=== PATIENT | male | born 1990 | race Two or more races ===

== ENCOUNTER 2022-12-11 23:24 | Emergency (ER) | payer SELFPAY ==
--- NOTE | ~2022-12-11 | XR_ITS ---
EXAMINATION: XR chest 2V DATE: 12/12/2022 00:45 INDICATION: Chest pain TECHNIQUE: PA and lateral views of the chest are obtained. COMPARISON: None available FINDINGS: The lungs are free of acute opacities. No pleural effusion or pneumothorax. The cardiomedia stinal silhouette is normal. The visualized bones and soft tissues are unremarkable. IMPRESSION: 1. No acute cardiopulmonary abnormality. Reviewed, dictated and finalized at location A. KERING MACHINE OPERATOR
--- NOTE | 2022-12-11 23:25 | ECG_ITS ---
Measurements Intervals [place] Rate: 58 P: 58 NH: 144 QRS: 29 QRSD: 94 T: 35 QT: 352 QTc: 347 Interpretive Statements SINUS BRADYCARDIA OTHERWISE NORMAL ECG NO PREVIOUS ECG AVAILABLE FOR COMPARISON Electronically Signed On 12-12-2022 11:31:26 CHOCOLATE MAKER by Alex Snow M.D.
[2022-12-11 23:27] VITALS: BP 139/98; PULSE 64; RESP 18; TEMP 36.8; O2SAT 100
[2022-12-11] MEDS: ASPIRIN 81 MG CHEWABLE TABLET 324 MG PO (23:38)
[2022-12-11 23:50] LABS: Basophils Absolute Auto 0.1 K/mm3 (0.0-0.1); Basophils Percent Auto 0.5 % (0.2-1.2); Eosinophils Absolute Auto 0.4 K/mm3 (0-0.3); Eosinophils Percent Auto 2.7 % (0-4.4); Hematocrit 48.5 % (42.0-52.0); Hemoglobin 16.7 g/dL (14.0-18.0); Immature Granulocyte Absolute 0.04 K/mm3 (0.00-0.031); Immature Granulocyte Percent A 0.3 % (0-0.5); Lymphocytes Absolute Auto 6.57 K/mm3 (0.9-3.2); Mean Corpuscular HGB Conc 34.4 g/dl (32-36); Mean Corpuscular Hemoglobin 30.7 pg (26-34); Mean Corpuscular Volume 89.2 fl (80-100); Mean Platelet Volume 10.8 fl (7.4-10.4); Monocytes Absolute Auto 0.8 K/mm3 (0.1-0.6); Monocytes Percent Auto 5.6 % (2.6-8.5); Neutrophils Absolute Auto 6.1 K/mm3 (1.3-6.7); Neutrophils Percent Auto 43.9 % (45.5-73.1); Platelet Count Result 263 k/mm3 (150-375); Red Blood Count 5.44 M/mm3 (4.6-6.20); Red Cell Distribution Width 12.8 % (11.5-14.5)
[2022-12-11 23:55] LABS: Partial Thromboplastin Time 28.8 SECONDS (22.3-36.8)
[2022-12-11 23:59] LABS: Schistocytes None Seen (NORMAL)
[2022-12-12] LABS: Platelet Estimate Adequate (Adequate); Smudge Cells FEW
[2022-12-12 00:20] VITALS: BP 142/90; PULSE 76; RESP 18; O2SAT 98
[2022-12-12 00:20] LABS: Alanine Aminotransferase 46 U/L (6-50); Albumin Level 4.8 g/dL (3.5-5.1); Alkaline Phosphatase 76 U/L (38-126); Anion Gap 8 mmol/L (8-16); Aspartate Amino Transferase 41 U/L (17-59); Bilirubin,Total 0.5 mg/dL (0.2-1.3); Blood Urea Nitrogen 17 mg/dL (9-20); Calcium 9.3 mg/dL (8.4-10.2); Carbon Dioxide 26 mmol/L (22-30); Chloride 103 mmol/L (98-107); Estimated CRCL calculation 132 ml/min; Estimated Glomerular Filt Rate > 60; Glucose 85 mg/dL (65-110); Lipase 54 U/L (23-300); Potassium 3.8 mmol/L (3.4-5.0); Sodium 137 mmol/L (137-145)
[2022-12-12 00:27] LABS: Troponin I < 0.012 ng/mL (0.000-0.034)
--- NOTE | 2022-12-12 00:30 | ED.GENADULT ---
HPI - General Adult General Chief complaint: Chest Pain Stated complaint: Chest heaviness and cp Time Seen by Provider: 12/11/22 23:33 History of Present Illness HPI narrative: 31-year-old male who reports no significant past medical history presenting to the emergency department for evaluation of 2 days of left-sided chest pain. Patient is a smoker and does have a frequent cough. Patient denies any recent fevers. Patient denies any cardiac history. Patient states the pain is worsened with movement and does report some exertional shortness of breath. Patient denies any recent medication changes. Patient denies any recent falls or injuries. Patient is [place] and is using a family member for medical record consultant. Translation computer was declined. Related Data Allergies Allergy/AdvReac Type Severity Reaction Status Date / Time No Known Allergies Allergy Verified 12/11/22 23:25 Review of Systems Review of Systems: CONSTITUTIONAL: Denies fever, chills, or sweats. EYES: Denies visual changes, redness, or discharge. ENT: Denies rhinorrhea, congestion, sore throat, or otalgia. CARDIOVASCULAR: See HPI. RESPIRATORY: Denies cough or dyspnea. GASTROINTESTINAL: Denies abdominal pain, nausea, vomiting, or diarrhea. GENITOURINARY: Denies dysuria or hematuria. SKIN: Denies rash or itching. MUSCULOSKELETAL: Denies back pain, joint pain, or myalgia. NEUROLOGIC: Denies headache, numbness, or weakness. Exam Narrative: APPEARANCE: Well appearing, no pain, no distress, well-nourished. HEAD: normocephalic, atraumatic. EYES: PERRLA/EOMI, conjunctivae clear. NOSE: Normal no drainage NECK: Supple. No adenopathy, no masses. RESPIRATORY: Airway patent, respirations nonlabored. Clear to auscultation bilaterally, no rales, rhonchi, wheezing. CARDIOVASCULAR: Regular rate and rhythm without murmurs rubs or gallops. ABDOMINAL: Soft, nontender, nondistended, normal bowel sounds MUSCULOSKELETAL: Moves all extremities. Strength/ROM intact, No edema, No calf tenderness. NEURO: Alert. Cranial nerves II through XII intact. Good gait. Good coordination SKIN: Warm, dry. Normal Color PSYCHIATRIC: Normal affect/mood. Course Course Emergency Course: Patient is afebrile but does have a leukocytosis of 14.0 patient had negative troponins. Patient's troponin was not elevated. Low concern for ACS and low concern for pulmonary embolism. Patient reports his pain was improved with Toradol. Patient chest x-ray showed no acute cardiopulmonary malady. No concern for pneumonia or pneumothorax. Patient was negative for influenza COVID and RSV. Patient and family were updated on the results of the work-up and suspected diagnosis of pleurisy. Patient was encouraged of close follow-up with a primary care physician. All questions and concerns were addressed and patient was well-appearing at time of discharge. Vital Signs Vital signs: Vital Signs Temperature 98.2 F 12/11/22 23:27 Pulse Rate 64 12/11/22 23:27 Respiratory Rate 18 12/11/22 23:27 Blood Pressure 139/98 H 12/11/22 23:27 Pulse Oximetry 100 12/11/22 23:27 Oxygen Delivery Room Air 12/11/22 23:27 Temperature 98.2 F 12/11/22 23:27 Pulse Rate 91 12/12/22 01:28 Respiratory Rate 16 12/12/22 01:28 Blood Pressure 121/94 H 12/12/22 01:28 Pulse Oximetry 100 12/12/22 01:28 Oxygen Delivery Room Air 12/11/22 23:27 Medical Decision Making Vital Signs Vital Signs: Vital Signs Temperature 98.2 F 12/11/22 23:27 Pulse Rate 64 12/11/22 23:27 Respiratory Rate 18 12/11/22 23:27 Blood Pressure 139/98 H 12/11/22 23:27 Pulse Oximetry 100 12/11/22 23:27 Oxygen Delivery Room Air 12/11/22 23:27 Temperature 98.2 F 12/11/22 23:27 Pulse Rate 91 12/12/22 01:28 Respiratory Rate 16 12/12/22 01:28 Blood Pressure 121/94 H 12/12/22 01:28 Pulse Oximetry 100 12/12/22 01:28 Oxygen Delivery Room Air 12/11/22 23:27 Lab Data Lab results reviewed: Yes I revi
[2022-12-12] MEDS: KETOROLAC 15 MG/ML VIAL (*BKC) IV PUSH (00:35)
[2022-12-12 00:55] LABS: D Dimer 0.41 ug/mL (<0.48)
[2022-12-12 01:28] VITALS: BP 121/94; PULSE 91; RESP 16; O2SAT 100
[2022-12-12 01:46] LABS: Influenza A QL RT-PCR Negative (Negative); Influenza B QL RT-PCR Negative (Negative); RSV RNA, RT-PCR Negative (Negative); SARS-CoV-2 RNA PCR Negative
[2022-12-12 02:56] LABS: Troponin I < 0.012 ng/mL (0.000-0.034)
[2022-12-12 03:10] VITALS: BP 128/84; PULSE 89; RESP 14; O2SAT 100
== END 2022-12-12 03:10 | disposition home or self-care (01) ==
PROVIDERS: Emergency Provider Emergency Medicine
DX: R09.1 Pleurisy (principal); R07.89 Other chest pain; Z20.822 Contact with and (suspected) exposure to COVID-19; F17.200 Nicotine dependence, unspecified, uncomplicated; R00.1 Bradycardia, unspecified
CPT/HCPCS: 36415; 71046; 80053; 83690; 84484; 85025; 85380; 85610; 85730; 87637; 93005; 96374; 99284; A9270; J1885

== ENCOUNTER 2023-02-22 18:02 | Emergency (ER) | payer SELFPAY ==
[2023-02-22 18:12] VITALS: BP 134/79; PULSE 89; RESP 16; TEMP 36.8
--- NOTE | 2023-02-22 20:10 | ED_ITS ---
HPI - General Adult General Chief complaint: Back Pain/Injury Stated complaint: back pain Time Seen by Provider: 02/22/23 20:00 History of Present Illness HPI narrative: 32-year-old male presents to our department again for right lower back pain with radiation down right leg. Onset was 4 days ago. No back pain red flags in history. Related Data Allergies Allergy/AdvReac Type Severity Reaction Status Date / Time No Known Allergies Allergy Verified 12/11/22 23:25 Review of Systems Review of Systems: 10 point review of systems is normal except as noted in HPI. Exam Narrative: GENERAL: Well-appearing, well-nourished, and in no acute distress. HEAD: Normocephalic, atraumatic. EYES: PERRLA and EOMI. ENT: Nares clear, no rhinorrhea or epistaxis. Mucous membranes moist. NECK: Supple. CHEST: Clear to auscultation. No respiratory distress. HEART: Regular rate and rhythm. No murmur heard. Normal peripheral pulses. ABDOMEN: Soft, nontender, nondistended, normal active bowel sounds. EXTREMITIES: Normal range of motion. No edema. SKIN: Warm, dry, no rash. NEURO: No focal deficits. Alert and oriented x3. Normal narrow-base gait PSYCH: Normal mood and affect. Course Vital Signs Vital signs: Vital Signs Temperature 98.2 F 02/22/23 18:12 Pulse Rate 89 02/22/23 18:12 Respiratory Rate 16 02/22/23 18:12 Blood Pressure 134/79 02/22/23 18:12 Temperature 98.2 F 02/22/23 18:12 Pulse Rate 89 02/22/23 18:12 Respiratory Rate 16 02/22/23 18:12 Blood Pressure 134/79 02/22/23 18:12 Medical Decision Making MDM Narrative Medical decision making narrative: Atraumatic right lower back pain x4 days. Patient was seen in our department after injury occurred and given [place], steroids, ibuprofen. His pain persist but his has inform me that he was unable to take them because the [place] made him vomit. No back pain red flags on history or physical exam. Vital Signs Vital Signs: Vital Signs Temperature 98.2 F 02/22/23 18:12 Pulse Rate 89 02/22/23 18:12 Respiratory Rate 16 02/22/23 18:12 Blood Pressure 134/79 02/22/23 18:12 Temperature 98.2 F 02/22/23 18:12 Pulse Rate 89 02/22/23 18:12 Respiratory Rate 16 02/22/23 18:12 Blood Pressure 134/79 02/22/23 18:12 Discharge Plan Discharge Clinical Impression: Strain of lumbar region, Sciatica Instructions: Acute Low Back Pain (ED) Additional Instructions: Please take all medications as directed. Follow-up with your PCP. Prescriptions: New methylprednisolone [Medrol (Chi)] 4 mg tablets,dose pack See Rx Instructions .ROUTE .COMPLEX Qty: 21 0RF Rx Instructions: orally per package directions ibuprofen 800 mg tablet 800 mg PO TID Qty: 20 0RF lidocaine [Lidoderm] 5 % adhesive patch,medicated 1 patch topical DAILY Qty: 15 0RF Rx Instructions: leave on most painful area for up to 12 hrs Follow-up/Referrals: PHYSICIAN,DEATH CLAIM CLERK [Primary Care Provider] - Time of Disposition: 20:15
[2023-02-22] MEDS: KETOROLAC 30 MG/ML VIAL (*BKC) 15 MG IM (20:26)
[2023-02-22] MEDS: DEXAMETHASONE 2 MG TABLET 10 MG PO (20:26)
== END 2023-02-22 20:52 | disposition home or self-care (01) ==
PROVIDERS: Emergency Provider Emergency Medicine
DX: S39.012A Strain of muscle, fascia and tendon of lower back, initial encounter (principal); M54.41 Lumbago with sciatica, right side; X58.XXXA Exposure to other specified factors, initial encounter
CPT/HCPCS: 96372; 99283; J1885; J8540

== ENCOUNTER 2023-12-22 14:32 | Emergency (ER) | payer SELFPAY ==
--- NOTE | ~2023-12-22 | XR_ITS ---
EXAMINATION: XR lumbar spine min 4V DATE: 12/22/2023 15:19 INDICATION: Low back pain. TECHNIQUE: 5 views of lumbar spine were obtained. COMPARISON: Lumbar spine CT 02/19/2023 FINDINGS: Bone alignment is normal. Vertebral body heights and intervertebral disc heights are normal . There is multilevel mild lumbar facet joint osteoarthritis. IMPRESSION: 1. Mild lumbar facet joint osteoarthritis. Reviewed, dictated and finalized at location A. NMAN
[2023-12-22 14:45] VITALS: BP 141/81; PULSE 93; RESP 16; TEMP 36.8; O2SAT 100
--- NOTE | 2023-12-22 15:04 | ED.BACK ---
HPI - Back Pain/Injury General Chief Complaint: Back Pain/Injury Stated Complaint: back pain Time Seen by Provider: 12/22/23 14:52 Source: patient, RN notes reviewed and assembler garment form Mode of arrival: ambulatory Limitations: no limitations History of Present Illness HPI Narrative: Patient presents today complaining of a 2 day history of midline low back pain without radiation. States pain started after he picked up his daughter 2 days ago. He is unsure of her weight but she has approximately 5 years old. Denies numbness or tingling in the extremities or genitalia. Denies loss of bowel or bladder control. He currently rates his pain 10/10 and has been using heat, Advil, a couple of a friend's muscle relaxer without relief. He had some similar symptoms and was diagnosed with sciatica approximately 1 year ago at [facility]. Related Data Allergies Allergy/AdvReac Type Severity Reaction Status Date / Time No Known Allergies Allergy Verified 12/22/23 14:43 Review of Systems Review of Systems: CONSTITUTIONAL: Denies body aches, fever, chills, or sweats. EYES: Denies visual changes, redness, or discharge. ENT: Denies rhinorrhea, congestion, sore throat, or otalgia. CARDIOVASCULAR: Denies chest pain, palpitations, or edema. RESPIRATORY: Denies cough or dyspnea. GASTROINTESTINAL: Denies abdominal pain, nausea, vomiting, or diarrhea. GENITOURINARY: Denies dysuria or hematuria. SKIN: Denies rash, itching, or wounds. MUSCULOSKELETAL: Denies joint pain, or myalgia.+ back pain NEUROLOGIC: Denies headache, numbness, tingling, or weakness. PSYCH: Denies depression or anxiety. PMFSH Comments At time of signature, I have reviewed and agree with nursing past medical, surgical, social and family history unless otherwise noted. Please see nursing chart for further information. There is no relevant family history pertinent to the presenting complaint Exam Narrative: GENERAL: Well-appearing, well-nourished, and in no acute distress. HEAD: Normocephalic, atraumatic. EYES: EOMI. No redness or drainage. Conjunctivae normal. ENT: Mucous membranes pink and moist. NECK: Normal AROM. CHEST: No respiratory distress. MUSCULOSKELETAL: + midline lumbar tenderness. No paraspinal muscle tenderness. Distal sensation intact. Saddle sensation intact. Capillary refill normal. EXTREMITIES: Normal range of motion. No edema. SKIN: Warm, dry, no rash. Capillary refill normal. Normal skin turgor. NEURO: No focal deficits. Alert and oriented x3. Gait steady. PSYCH: Normal affect. No signs of depression or anxiety. Course Course Level of Care: Express Care Visit Vital Signs Vital signs: Vital Signs Temperature 98.3 F 12/22/23 14:45 Pulse Rate 93 12/22/23 14:45 Respiratory Rate 16 12/22/23 14:45 Blood Pressure 141/81 H 12/22/23 14:45 Pulse Oximetry 100 12/22/23 14:45 Oxygen Delivery Room Air 12/22/23 14:45 Temperature 98.3 F 12/22/23 14:45 Pulse Rate 93 12/22/23 14:45 Respiratory Rate 16 12/22/23 14:45 Blood Pressure 141/81 H 12/22/23 14:45 Pulse Oximetry 100 12/22/23 14:45 Oxygen Delivery Room Air 12/22/23 14:45 Reviewed MDM - Back Pain/Injury MDM Narrative Medical decision making narrative: X-ray shows some facet arthritis, but is otherwise normal. Prescriptions for prednisone and Flexeril will be sent to the pharmacy. Anticipatory guidance given. Differential Diagnosis Differential diagnosis: Likely lumbar radiculopathy, strain of lumbar region and other (Bulging disc, compression fracture) Imaging Data Radiologist's impression: ITS Impressions Lumbar Spine X-Ray 12/22/23 15:22 IMPRESSION: 1. Mild lumbar facet joint osteoarthritis. Critical Care Time Critical Care Time Critical Care Time: No Discharge Plan Discharge Clinical Impression: Strain of lumbar region Qualifiers: Encounter type: initial encounter Qualified Code(s): S39.012A - Strai
== END 2023-12-22 15:38 | disposition home or self-care (01) ==
PROVIDERS: Emergency Provider Nurse Practitioner
DX: S39.012A Strain of muscle, fascia and tendon of lower back, initial encounter (principal); X58.XXXA Exposure to other specified factors, initial encounter
CPT/HCPCS: 72110; 99213; G0463

== ENCOUNTER 2024-02-12 18:26 | Emergency (ER) | payer SELFPAY ==
[2024-02-12 18:52] VITALS: BP 121/80; PULSE 94; RESP 16; TEMP 36.9; O2SAT 99
== END 2024-02-12 19:35 | disposition short-term general hospital (02) ==
PROVIDERS: Emergency Provider Nurse Practitioner
DX: M54.50 Low back pain, unspecified (principal); R10.9 Unspecified abdominal pain; R31.9 Hematuria, unspecified
CPT/HCPCS: 81003; 99212; G0463

== ENCOUNTER 2024-02-12 19:54 | Emergency (ER) | payer SELFPAY ==
--- NOTE | ~2024-02-12 | CT_ITS ---
Non-contrast CT scan of the Abdomen and Pelvis Clinical indication: Flank pain Technique: 2.5 mm axial scans were obtained through the abdomen and pelvis without intravenous or or al contrast. Dose reduction technique was used on this scan by utilizing automated exposure control a nd iterative reconstruction technique. The dose-length product (DLP) was 375.70 mGy-cm. Findings: Images through the lung bases reveal no abnormalities. There is no evidence of renal or ureteral calculi. The kidneys and the ureters are nondilated. The liver, spleen, pancreas, gallbladder, and adrenals appear normal. There is no aortic aneurysm. There is no evidence of bowel obstruction. Images through the pelvis were performed. There is no evidence of ascites or lymphadenopathy. Urinary bladder unremarkable. No pelvic mass seen. Impression: No significant abnormality seen. Reviewed, dictated and finalized at [facility]. Impression: No significant abnormality seen.
[2024-02-12 20:27] VITALS: BP 127/81; PULSE 84; RESP 16; TEMP 36.3; O2SAT 99
[2024-02-12 20:50] LABS: Basophils Absolute Auto 0.1 K/mm3 (0.0-0.1); Basophils Percent Auto 0.7 % (0.2-1.2); Eosinophils Absolute Auto 0.3 K/mm3 (0-0.3); Eosinophils Percent Auto 4.1 % (0-4.4); Hematocrit 50.5 % (42.0-52.0); Hemoglobin 17.7 g/dL (14.0-18.0); Immature Granulocyte Absolute 0.01 K/mm3 (0.00-0.031); Immature Granulocyte Percent A 0.1 % (0-0.5); Lymphocytes Absolute Auto 4.17 K/mm3 (0.9-3.2); Lymphocytes Percent Auto 54.6 % (18.3-44.2); Mean Corpuscular Hemoglobin 30.9 pg (26-34); Mean Corpuscular Volume 88.3 fl (80-100); Mean Platelet Volume 11.1 fl (7.4-10.4); Monocytes Absolute Auto 0.5 K/mm3 (0.1-0.6); Monocytes Percent Auto 6.7 % (2.6-8.5); Neutrophils Absolute Auto 2.6 K/mm3 (1.3-6.7); Neutrophils Percent Auto 33.8 % (45.5-73.1); Platelet Count Result 200 k/mm3 (150-375); Red Blood Count 5.72 M/mm3 (4.6-6.20); Red Cell Distribution Width 12.7 % (11.5-14.5); White Blood Count 7.6 K/mm3 (4.5-10.0)
[2024-02-12 20:52] LABS: Appearance Urine Clear (Clear); Bilirubin Urine Negative (Negative); Blood Urine Negative (Negative); Color Urine Yellow (Yellow); Glucose Urine UA Negative (Negative); Ketones Urine Negative (Negative); Leukocyte Esterase Ur Negative LEU/UL (Negative); Nitrate Urine Negative (Negative); Protein Urine Negative (Negative); Specific Grav Ur 1.022 (1.001-1.035); pH Urine 6.5 (5.0-9.0)
[2024-02-12 20:58] LABS: Add Urine Microscopic? NO
[2024-02-12 21:02] LABS: Alanine Aminotransferase 48 U/L (6-50); Albumin Level 4.8 g/dL (3.5-5.1); Alkaline Phosphatase 71 U/L (38-126); Anion Gap 8 mmol/L (4-12); Aspartate Amino Transferase 42 U/L (17-59); Bilirubin,Total 0.6 mg/dL (0.2-1.3); Blood Urea Nitrogen 12 mg/dL (9-20); Calcium 9.7 mg/dL (8.4-10.2); Carbon Dioxide 29 mmol/L (22-30); Chloride 104 mmol/L (98-107); Estimated Glomerular Filt Rate > 60; Glucose 90 mg/dL (65-110); Potassium 3.8 mmol/L (3.4-5.0); Sodium 141 mmol/L (137-145)
--- NOTE | 2024-02-12 23:15 | PC.NURSE ---
Report given to CINTHIA Powell
--- NOTE | 2024-02-12 23:51 | ED.GENADULT ---
HPI - General Adult General Chief complaint: Urogenital-Male Stated complaint: Bilateral flank pain, hematuria, sent from Time Seen by Provider: 02/12/24 22:38 History of Present Illness HPI narrative: Patient 33-year-old gentleman presents emergency department chief complaint of flank pain. The patient reports that he has been having flank pain for the last several days reports that the pain does radiate down to his low back patient was seen in Urgent Care in the nose there is some microscopic blood in his urine the patient was sent to the emergency department patient denies vomiting denies diarrhea states that he may have had a low-grade fever Related Data Allergies Allergy/AdvReac Type Severity Reaction Status Date / Time No Known Allergies Allergy Verified 02/12/24 18:48 Review of Systems Review of Systems: A 10 system review of systems was completed on the patient and is negative except for what is stated in the HPI. Nursing and ancillary documentation was reviewed. Exam Narrative: GENERAL: Well-appearing, well-nourished, and in no acute distress. HEAD: Normocephalic, atraumatic. EYES: PERRLA and EOMI. ENT: Nares clear, no rhinorrhea or epistaxis. Mucous membranes moist. NECK: Supple. CHEST: Clear to auscultation. No respiratory distress. HEART: Regular rate and rhythm. No murmur heard. Normal peripheral pulses. ABDOMEN: Soft, nontender, nondistended, normal active bowel sounds. EXTREMITIES: Normal range of motion. No edema. SKIN: Warm, dry, no rash. NEURO: No focal deficits. Alert and oriented x3. PSYCH: Normal mood and affect. Course Vital Signs Vital signs: Vital Signs Temperature 36.3 C L 02/12/24 20:27 Pulse Rate 84 02/12/24 20:27 Respiratory Rate 16 02/12/24 20:27 Blood Pressure 127/81 02/12/24 20:27 Pulse Oximetry 99 02/12/24 20:27 Oxygen Delivery Room Air 02/12/24 20:27 Temperature 36.3 C L 02/12/24 20:27 Pulse Rate 67 02/13/24 01:03 Respiratory Rate 17 02/13/24 01:03 Blood Pressure 130/89 02/13/24 01:03 Pulse Oximetry 98 02/13/24 01:03 Oxygen Delivery Room Air 02/12/24 20:27 Medical Decision Making MDM Narrative Medical decision making narrative: Differential diagnosis includes pyelonephritis, ureterolithiasis, lumbar strain Laboratory studies were obtained on the patient showed normal CBC normal CMP normal renal function urinalysis showed no evidence UTI no bloody urine. CT renal stone protocol showed no evidence of kidney stone and no acute abnormality The patient was started on anti-inflammatories and muscle relaxers and will be discharged home patient follow-up with primary care provider Vital Signs Vital Signs: Vital Signs Temperature 36.3 C L 02/12/24 20:27 Pulse Rate 84 02/12/24 20:27 Respiratory Rate 16 02/12/24 20:27 Blood Pressure 127/81 02/12/24 20:27 Pulse Oximetry 99 02/12/24 20:27 Oxygen Delivery Room Air 02/12/24 20:27 Temperature 36.3 C L 02/12/24 20:27 Pulse Rate 67 02/13/24 01:03 Respiratory Rate 17 02/13/24 01:03 Blood Pressure 130/89 02/13/24 01:03 Pulse Oximetry 98 02/13/24 01:03 Oxygen Delivery Room Air 02/12/24 20:27 Lab Data 02/12/24 20:41 02/12/24 20:41 Labs: Lab Results 02/12/24 Range/Units 20:41 WBC 7.6 (4.5-10.0) K/mm3 RBC 5.72 (4.6-6.20) M/mm3 Hgb 17.7 (14.0-18.0) g/dL Hct 50.5 (42.0-52.0) % MCV 88.3 (80-100) fl MCH 30.9 (26-34) pg MCHC 35.0 (32-36) g/dl RDW 12.7 (11.5-14.5) % Plt Count 200 (150-375) k/mm3 MPV 11.1 H (7.4-10.4) fl Immature Gran % (Auto) 0.1 (0-0.5) % Neut % (Auto) 33.8 L (45.5-73.1) % Lymph % (Auto) 54.6 H (18.3-44.2) % [place]linger % (Auto) 6.7 (2.6-8.5) % Eos % (Auto) 4.1 (0-4.4) % Baso % (Auto) 0.7 (0.2-1.2) % Lymph # (Auto) 4.17 H (0.9-3.2) K/mm3 [place]linger # (Auto) 0.5 (0.1-0.6) K/mm3 Eos # (Auto) 0.3 (0-0.3) K/mm3 Baso # (Auto) 0.1 (0.0
[2024-02-13 01:03] VITALS: BP 130/89; PULSE 67; RESP 17; O2SAT 98
== END 2024-02-13 01:21 | disposition home or self-care (01) ==
PROVIDERS: Emergency Provider Emergency Medicine; Referring Provider Family Medicine
DX: R10.9 Unspecified abdominal pain (principal)
CPT/HCPCS: 36415; 74176; 80053; 81003; 85025; 99284

== ENCOUNTER 2024-06-29 20:30 | Emergency (ER) | payer SELFPAY ==
[2024-06-29 20:36] VITALS: BP 131/89; PULSE 82; RESP 16; TEMP 36.2; O2SAT 98
--- NOTE | 2024-06-29 23:00 | PC.NURSE ---
pt moved from room 17 to room 14. no distress noted.
--- NOTE | 2024-06-30 00:07 | ED.WOUNDLAC ---
HPI - Wound/Laceration General Chief Complaint: Wound/Laceration Stated Complaint: laceration Time Seen by Provider: 06/29/24 23:15 Source: patient Mode of arrival: ambulatory Limitations: no limitations History of Present Illness HPI narrative: This is a 33 year old male that presents to the ER for laceration to the left third finger sustained just prior to arrival. Reports he was painting and accidentally cut his finger with a knife. Reports bleeding and pain to the area. He is not up to date on tetanus. Denies decreased ROM or numbness. Related Data Allergies Allergy/AdvReac Type Severity Reaction Status Date / Time No Known Allergies Allergy Verified 06/29/24 20:40 Review of Systems Review of Systems: CONSTITUTIONAL: Denies fever SKIN: Reports laceration NEUROLOGIC: Denies numbness All systems reviewed & are unremarkable except as noted in HPI and below PMFSH Past Medical History Medical History (Updated 06/30/24 @ 00:37 by Bernie Miranda PA-C) No active medical problems Social History Social History (Updated 06/30/24 @ 00:11 by Bernie Miranda PA-C) Substance use: never Exam Narrative: GENERAL: Well-appearing, well-nourished, and in no acute distress. HEAD: Normocephalic, atraumatic. EYES: EOMI. EXTREMITIES: Normal range of motion. No edema. 1.5 cm linear laceration into subcutaneous tissue to the left third finger dorsal surface middle phalanx SKIN: Warm, dry, no rash. NEURO: No focal deficits. Alert and oriented x3. PSYCH: Normal mood and affect Course Course Emergency Course: Patient left after I saw him and before receiving tetanus vaccination or getting sutured Vital Signs Vital signs: Vital Signs Temperature 97.2 F L 06/29/24 20:36 Pulse Rate 82 06/29/24 20:36 Respiratory Rate 16 06/29/24 20:36 Blood Pressure 131/89 06/29/24 20:36 Pulse Oximetry 98 06/29/24 20:36 Oxygen Delivery Room Air 06/29/24 20:36 Temperature 97.2 F L 06/29/24 20:36 Pulse Rate 82 06/29/24 20:36 Respiratory Rate 16 06/29/24 20:36 Blood Pressure 131/89 06/29/24 20:36 Pulse Oximetry 98 06/29/24 20:36 Oxygen Delivery Room Air 06/29/24 20:36 MDM - Wound/Laceration MDM Narrative Medical decision making narrative: Patient presents to the emergency department for left 3rd finger laceration. He is neurovascularly intact. Wound was irrigated. Patient left after I saw him and before receiving tetanus vaccination or getting sutured Differential Diagnosis Differential diagnosis: Likely laceration, abrasion and avulsion of skin Critical Care Time Critical Care Time Critical Care Time: No Discharge Plan Discharge Clinical Impression: Laceration Patient Disposition: Elopement After Seen by Prov Condition: Stable Prescriptions: No Action diclofenac potassium 50 mg tablet 50 mg PO TID PRN (Reason: pain) Qty: 21 0RF cyclobenzaprine 10 mg tablet 10 mg PO TID PRN (Reason: muscle spasm) Qty: 21 0RF Follow-up/Referrals: PHYSICIAN,APPLICATION DEVELOPMENT LIAISON [Primary Care Provider] -
--- NOTE | 2024-06-30 00:26 | PC.NURSE ---
pt seen by saroj cook, pt is no longer found in room. heel burnisher hsa not observed pt walk out of department.
[2024-06-30 00:51] VITALS: BP 137/78; PULSE 68; RESP 16; TEMP 36.6; O2SAT 98
== END 2024-06-30 00:52 | disposition left against medical advice (07) ==
PROVIDERS: Emergency Provider Physician Assistant
DX: S61.213A Laceration without foreign body of left middle finger without damage to nail, initial encounter (principal); W26.0XXA Contact with knife, initial encounter
CPT/HCPCS: 99282

== ENCOUNTER 2024-06-30 08:10 | Emergency (ER) | payer SELFPAY ==
[2024-06-30 08:19] VITALS: BP 103/78; PULSE 63; RESP 16; TEMP 36.9; O2SAT 99
--- NOTE | 2024-06-30 08:36 | ED.WOUNDLAC ---
HPI - Wound/Laceration General Chief Complaint: Wound/Laceration Stated Complaint: Left Hand Finger Laceration Time Seen by Provider: 06/30/24 08:36 Source: patient, RN notes reviewed and old records reviewed Mode of arrival: ambulatory Limitations: no limitations History of Present Illness HPI narrative: Patient presents with complaints of laceration to left 3rd finger. Injury happened at approximately 8:00 p.m. last night, patient left emergency department before treatment was complete. He did not receive tetanus and the laceration was not sutured. The wound is oozing Related Data Allergies Allergy/AdvReac Type Severity Reaction Status Date / Time No Known Allergies Allergy Verified 06/29/24 20:40 Review of Systems Review of Systems: All systems reviewed & are unremarkable except as noted in HPI and below Constitutional: Constitutional: Reports no additional constitutional complaints ENT: Reports system reviewed and no additional complaints, except as documented Cardiovascular: Cardiovascular: Reports no additional cardiovascular complaints Respiratory: Respiratory: Reports no additional respiratory complaints Gastrointestinal: Gastrointestinal: Reports no additional gastrointestinal complaints Integumentary/Breasts: Skin/Breast: Reports system reviewed and no additional complaints, except as docu and Reports as per HPI [facility] Past Medical History Medical History No active medical problems Social History Social History Substance use: never Exam Const: General: cooperative, no acute distress, alert and awake Orientation/consciousness: oriented to person, oriented to place and oriented to time HENMT: Head: normal to inspection Resp: Effort & Inspection: normal respiratory effort and able to speak in complete sentences Auscultation: clear to auscultation bilaterally, no crackles, no rales, no rhonchi and no wheezes Cardio: Palpation: normal PMI Rate: regular rate Rhythm: regular rhythm Heart sounds: S1 normal heart sound present and S2 normal heart sound present Neuro: General: oriented to person, oriented to place and oriented to time Cranial nerves: Yes CN's II-XII intact bilaterally Extrem: Left upper extremity: full ROM, normal capillary refill and hand normal capillary refill, neuromotor exam normal and neurosensory exam normal Hand/finger images: 1. 1.5 cm linear laceration, oozing Psych: Appearance: grossly normal Thought process: Normal thought process present Insight: Good insight present (Psych) Judgement: Good judgement present (Psych) Course Course Level of Care: Express Care Visit Vital Signs Vital signs: Vital Signs Temperature 98.4 F 06/30/24 08:19 Pulse Rate 63 06/30/24 08:19 Respiratory Rate 16 06/30/24 08:19 Blood Pressure 103/78 06/30/24 08:19 Pulse Oximetry 99 06/30/24 08:19 Oxygen Delivery Room Air 06/30/24 08:19 Temperature 98.4 F 06/30/24 08:19 Pulse Rate 63 06/30/24 08:19 Respiratory Rate 16 06/30/24 08:19 Blood Pressure 103/78 06/30/24 08:19 Pulse Oximetry 99 06/30/24 08:19 Oxygen Delivery Room Air 06/30/24 08:19 MDM - Wound/Laceration MDM Narrative Medical decision making narrative: Laceration greater than 12 hours old. Not amenable to suturing at this point. Tetanus updated. Wound dressed. Antibiotics prescribed. Follow-up with primary care provider, emergency department for new or worse symptoms. Discharge instructions reviewed with patient, as well as provided in writing per nursing staff. The instructions also include specific and strict return/GO TO THE ER as well as f/u information. All questions have been answered, and the patient deny any further questions with discharge and discharge plan. Some parts of this dictation were generated by voice recognition software and may contain typ
--- NOTE | 2024-06-30 08:38 | PC.NURSE ---
[place] [id number]. Correction pt did not receive his tetanus yesterday as he left before given.
[2024-06-30] MEDS: TETANUS,DIPHTHERIA,AC PERTUSSIS ADULT (0.5 ML) BOOSTRIX IM (09:04)
== END 2024-06-30 09:22 | disposition home or self-care (01) ==
PROVIDERS: Emergency Provider Nurse Practitioner Family
DX: S61.213A Laceration without foreign body of left middle finger without damage to nail, initial encounter (principal); X58.XXXA Exposure to other specified factors, initial encounter; Z23 Encounter for immunization
CPT/HCPCS: 90471; 90715; 99213; G0463